=== PATIENT | female | born 1995 | race Caucasian/White ===

== ENCOUNTER 2018-06-26 22:17 | Emergency (ER) | payer SELFPAY, MEDICAID ==
[2018-06-26] MEDS: LIDOCAINE/MYLANTA 40 ML BTL PO (23:27)
[2018-06-26] MEDS: ONDANSETRON (ODT) 4 MG TAB ODT (23:27)
== END 2018-06-27 00:36 | disposition home or self-care (01) ==
LOC: E/R 06-27 00:36
DX: R11.2 Nausea with vomiting, unspecified (principal); R10.13 Epigastric pain
CPT/HCPCS: 81025; 99283